=== PATIENT | female | born 1935 | race Caucasian/White ===

== ENCOUNTER 2016-10-11 14:06 | Emergency (ER) | payer MEDICARE, BC ==
[2016-10-11 15:05] VITALS: BP 140/77
--- NOTE | 2016-10-11 15:40 | UC ---
Lower Extremity/Ankle HPI - HPI Summary HPI Summary: Noticed pain in R anterior min yesterday late morning that gradually worsened through the day with weight-bearing. This morning felt normal when she woke up, but has developed increasingly sharp pain with weight bearing in same place. Denies previous surgeries or trauma to the area. No redness or skin injuries. - History of Current Complaint Chief Complaint: UCLowerExtremity Stated Complaint: PAIN RIHGT LOWER LEG Time Seen by Provider: 10/11/16 15:25 Hx Obtained From: Patient ?: No Onset/Duration: Gradual Onset, Lasting Days Severity Initially: Mild Severity Currently: Moderate Aggravating Factor(s): Standing, Ambulation Alleviating Factor(s): Rest Able to Bear Weight: Yes - Allergies/Home Medications Allergies/Adverse Reactions: Allergies Allergy/AdvReac Type Severity Reaction Status Date / Time No Known Allergies Allergy Verified 10/11/16 15:05 Home Medications: Home Medications Amlodipine Besylate-Benazepril [Lotrel 5-20 mg] 1 cap PO 10/11/16 [History] Aspirin [Aspirin 81 MG TAB] 81 mg PO DAILY 10/11/16 [History Confirmed 10/11/16] Metoprolol Succinate [Toprol Xl] 100 mg PO DAILY 10/11/16 [History Confirmed ] PMH/Surg Hx/FS Hx/Imm Hx Cardiovascular History: Hypertension - Surgical History Surgical History: Yes Surgery Procedure, Year, and Place: BILAT HIP REPLACEMENT 2009 2011, [facility]. REPAIR RIGHT WRIST FX W/ HARDWARE. - Family History Known Family History: Positive: Hypertension - Social History Occupation: Retired Alcohol Use: None Substance Use Type: None Smoking Status (MU): Never Smoked Tobacco Review of Systems Constitutional: Negative Skin: Negative Eyes: Negative ENT: Negative Respiratory: Negative Cardiovascular: Negative Gastrointestinal: Negative Genitourinary: Negative Motor: Negative Neurovascular: Negative Musculoskeletal: Arthralgia Neurological: Negative Psychological: Negative All Other Systems Reviewed And Are Negative: Yes Physical Exam Triage Information Reviewed: Yes Appearance: Well-Appearing, No Pain Distress, Well-Nourished Vital Signs: Initial Vital Signs Temp 97.6 F 10/11/16 14:56 Pulse 68 10/11/16 14:56 Resp 16 10/11/16 14:56 BP 140/77 10/11/16 14:56 Pulse Ox 99 10/11/16 14:56 Vital Signs Reviewed: Yes Eye Exam: Normal ENT Exam: Normal ENT: Positive: Normal ENT inspection, Hearing grossly normal, Pharynx normal, TMs normal Dental Exam: Normal Neck exam: Normal Neck: Positive: Supple, Nontender, No Lymphadenopathy Respiratory Exam: Normal Respiratory: Positive: Chest non-tender, Lungs clear, Normal breath sounds, No respiratory distress, No accessory muscle use Cardiovascular Exam: Normal Cardiovascular: Positive: RRR, No Murmur Musculoskeletal Exam: Other - lower min diffuse tenderness Musculoskeletal: Positive: Strength Intact, ROM Intact Neurological Exam: Normal Neurological: Positive: Alert Psychological Exam: Normal Skin Exam: Other - no redness, swelling, streaking, or skin lesions on BLE Lower Extremity Course/Dx - Differential Dx/Diagnosis Provider Diagnoses: R lower leg pain Discharge - Discharge Plan Condition: Stable Disposition: HOME Patient Education Materials: Leg Pain (ED) Referrals: Angelica Kennedy MD [Medical Doctor] - 4 Days Additional Instructions: I am not sure what is causing your pain, but your bones do not show any cysts or tumors. I recommend you take 400mg ibuprofen up to 3 times per day and keep your activity level low through the weekend. If you continue to have pain with walking next week, you should see your primary care provider for a more in- depth evaluation.
--- NOTE | 2016-10-11 16:36 | RAD ---
INDICATION: Right leg pain COMPARISON: None TECHNIQUE: AP and lateral views were obtained. FINDINGS: There is no acute fracture or dislocation. There is no soft tissue swelling. There are scant anterior soft tissue calcifications. IMPRESSION: NO ACUTE BONY FINDINGS.
== END 2016-10-11 16:56 | disposition home or self-care (01) ==
LOC: UCCORT 14:06
DX: M79.661 Pain in right lower leg (principal); I10 Essential (primary) hypertension; Z96.643 Presence of artificial hip joint, bilateral
CPT/HCPCS: 99211; G0463

== ENCOUNTER 2018-05-01 10:17 | Emergency (ER) | payer MEDICARE, BC ==
[2018-05-01 10:56] VITALS: BP 193/78
--- NOTE | 2018-05-01 11:44 | UC ---
Upper Extremity HPI - HPI Summary HPI Summary: Pt presents with c/o bilateral upper arm pain that began 1 week ago after slipping on ice and reaching above with both arms extended to keep herself from falling. Pt now c/o of bilateral upper arm pain with certain movements such as reaching over her head. Pt has been taking aleve for pain relief and no improvement of pain. - History of Current Complaint Chief Complaint: UCUpperExtremity Stated Complaint: BILATERAL SHOULDER PAIN - FALL 2 WKS AGO Time Seen by Provider: 05/01/18 10:52 Hx Obtained From: Patient ?: No Onset/Duration: Sudden Onset, Worse Since - onset Severity Initially: Mild Severity Currently: Mild Pain Intensity: 3 Location Of Pain: Is Discrete @ - bilateral upper arms Character: Sharp, Dull, Aching, Stiffness Aggravating Factor(s): Movement Alleviating Factor(s): Nothing Related History: Dominant Hand Right - Risk Factors Non-Orthopedic Risk Factor: Negative Septic Arthritis Risk Factor: Negative Compartment Syndrome Risk Factors: Pain - Allergies/Home Medications Allergies/Adverse Reactions: Allergies Allergy/AdvReac Type Severity Reaction Status Date / Time No Known Allergies Allergy Verified 05/01/18 11:22 Home Medications: Home Medications Multivitamin [Multivitamins] 1 cap PO DAILY 05/01/18 [History Confirmed 05/01/18 ] PMH/Surg Hx/FS Hx/Imm Hx Previously Healthy: Yes Cardiovascular History: Hypertension - Surgical History Surgical History: Yes Surgery Procedure, Year, and Place: BILAT HIP REPLACEMENT 2009 2011, [facility]. REPAIR RIGHT WRIST FX W/ HARDWARE. - Family History Known Family History: Positive: Hypertension - Social History Occupation: Retired Lives: With Family Alcohol Use: None Substance Use Type: None Smoking Status (MU): Former Smoker Have You Smoked in the Last Year: No Review of Systems All Other Systems Reviewed And Are Negative: Yes Constitutional: Positive: Negative Skin: Positive: Negative Eyes: Positive: Negative ENT: Positive: Negative Respiratory: Positive: Negative Cardiovascular: Positive: Negative Gastrointestinal: Positive: Negative Genitourinary: Positive: Negative Motor: Positive: Decreased ROM - bialteral shoulders/upper extremities Neurovascular: Positive: Negative Musculoskeletal: Positive: Arthralgia, Decreased ROM - bilateral upper extremities, Myalgia Neurological: Positive: Negative Psychological: Positive: Negative Is Patient Immunocompromised?: No Physical Exam Triage Information Reviewed: Yes Appearance: Well-Appearing, Pain Distress - with extension of arms overhead Vital Signs: Initial Vital Signs Temp 98.1 F 05/01/18 10:43 Pulse 79 05/01/18 10:43 Resp 20 05/01/18 10:43 BP 193/78 05/01/18 10:43 Pulse Ox 98 05/01/18 10:43 Vital Signs Reviewed: Yes Eye Exam: Normal ENT Exam: Normal Dental Exam: Normal Neck exam: Normal Respiratory Exam: Normal Cardiovascular Exam: Normal Musculoskeletal: Positive: Strength Limited @ - upper arm and shoulder pain, ROM Limited @ Neurological Exam: Normal Psychological Exam: Normal Skin Exam: Normal Diagnostics - Radiology No standard instances Radiology Interpretation Completed By: Radiologist - IMPRESSION: #. Negative for fracture or dislocation. #. Osteoarthritis. - EKG Cardiac Rate: NL Cardiac Rhythm: Sinus: Normal Ectopy: None ST Segment: Normal Upper Extremity Course/Dx - Differential Dx/Diagnosis Differential Diagnosis/HQI/PQRI: Contusion, Strain, Sprain Provider Diagnosis: Strain of left upper arm, Strain of upper arm, right Discharge - Sign-Out/Discharge Documenting (check all that apply): Patient Departure All imaging exams completed and their final reports reviewed: Yes - Discharge Plan Condition: Stable Disposition: HOME Patient Education Materials: Muscle Strain (ED), Arm Pain (ED) Referrals: Gabrielle Gonzáles MD [Primary Care Provider] - If Needed - Billing Disposition and Condition Condition: STABLE Disposition: Home
== END 2018-05-01 12:35 | disposition home or self-care (01) ==
LOC: UCCORT 10:17
DX: S46.912A Strain of unspecified muscle, fascia and tendon at shoulder and upper arm level, left arm, initial encounter (principal); S46.911A Strain of unspecified muscle, fascia and tendon at shoulder and upper arm level, right arm, initial encounter; W00.0XXA Fall on same level due to ice and snow, initial encounter; Y92.9 Unspecified place or not applicable; I10 Essential (primary) hypertension; Z87.891 Personal history of nicotine dependence
CPT/HCPCS: 93005; 99211; G0463